=== PATIENT | male | born 1985 | race Caucasian/White ===

== ENCOUNTER 2017-11-14 19:17 | Emergency (ER) | payer SELFPAY ==
[~2017-11-14 19:17] MED LIST: LISI-363 PO
[2017-11-14 19:19] VITALS: BP 139/73; PULSE 76; RESP 16; TEMP 97.7; O2SAT 98
[2017-11-14] MEDS ORDERED: SODIUM CHLORIDE 0.9% FLUSH 10 ML FLUSH IV FLUSH PRN (19:45)
--- NOTE | 2017-11-14 19:55 | PD ---
HPI Chief Complaint: Edema Time Seen by Provider: 19:30 Travel History International Travel<30 days: No Contact w/Intl Traveler<30days: No Traveled to known affect area: No History of Present Illness HPI Patient is a 32-year-old male who presents to emergency room complaints of edema to his lower extremities. Patient reports that he has had increased edema since August of 2017. Patient reports that his legs would swell up and become painful. Reports no recent travels/trips. Denies history of dvt/pe. Denies sob. Patient reports that he does have history of chronic pain and history of IV drug abuse, he does follow-up with her pain management doctor in [facility] and is prescribed 8 mg of Dilaudid by mouth q 2 hours. Patient reports that he has had bruising to his right toes - denies any trauma. Patient reports concern that he may be in renal failure or reports concern that something is wrong with him. Denies fever/chills. Denies n/v. Denies chest pain/ sob. PFSH Past Medical History Cardiovascular Problems: Yes (HTN) Social History Alcohol Use: Yes Tobacco Use: Yes Substance Use: Yes Allergies-Medications (Allergen,Severity, Reaction): Coded Allergies: No Known Allergies (Unverified Adverse Reaction, Unknown, 11/14/17) Reported Meds & Prescriptions Reported Meds & Active Scripts Active Reported Dilaudid (Hydromorphone HCl) 8 Mg Tab 8 Mg PO Q6H PRN Review of Systems General / Constitutional: No: Fever, Chills Eyes: No: Visual changes HENT: No: Headaches Cardiovascular: No: Chest Pain or Discomfort Respiratory: No: Shortness of Breath Gastrointestinal: No: Abdominal Pain Genitourinary: No: Dysuria Musculoskeletal: Positive: Edema, No: Pain Skin: No Rash Neurologic: No: Weakness Psychiatric: No: Depression Endocrine: No: Polydipsia Hematologic/Lymphatic: No: Easy Bruising Physical Exam Narrative GENERAL: moderate distress SKIN: Focused skin assessment warm/dry. HEAD: Atraumatic. Normocephalic. EYES: Pupils equal and round. No scleral icterus. No injection or drainage. ENT: No nasal bleeding or discharge. Mucous membranes pink and moist. NECK: Trachea midline. No JVD. CARDIOVASCULAR: Regular rate and rhythm. No murmur appreciated. RESPIRATORY: No accessory muscle use. Clear to auscultation. Breath sounds equal bilaterally. GASTROINTESTINAL: Abdomen soft, non-tender, nondistended. Hepatic and splenic margins not palpable. MUSCULOSKELETAL: No obvious deformities. No clubbing. No cyanosis. +3 pedal edema, patient with bruising to right foot digits #2-3, pulses intact, neurovascularly intact. Left lower extremity: +3 pedal edema, no evidence of any bruising, pulses intact , neurovascularly intact. NEUROLOGICAL: Awake and alert. No obvious cranial nerve deficits. Motor grossly within normal limits. Normal speech. PSYCHIATRIC: Appropriate mood and affect; insight and judgment normal. Data Data Last Documented VS Vital Signs Date Time Temp Pulse Resp B/P (MAP) Pulse Ox O2 Delivery O2 Flow Rate FiO2 11/14/17 19:19 97.7 76 16 139/73 (95) 98 Room Air Orders Orders Basic Metabolic Panel (Bmp) (11/14/17 19:45) Complete Blood Count With Diff (11/14/17 19:45) Prothrombin Time / Inr (Pt) (11/14/17 19:45) Act Partial Throm Time (Ptt) (11/14/17 19:45) Iv Access Insert/Monitor (11/14/17 19:45) Sodium Chloride 0.9% Flush (Ns Flush) (11/14/17 19:45) Us Leg Venous Doppler Bilat (11/14/17 ) Drug Screen, Random Urine (11/14/17 19:45) Labs Laboratory Tests Test 11/14/17 20:15 11/14/17 21:20 White Blood Count 7.0 TH/MM3 Red Blood Count 4.22 MIL/MM3 Hemoglobin 12.5 GM/DL Hematocrit 36.9 % Mean Corpuscular Volume 87.5 FL Mean Corpuscular Hemoglobin 29.7 PG Mean Corpuscular Hemoglobin Concent 34.0 % Red Cell Distribution Width 13.4 % Platelet Count 272 TH/MM3 Mean Platelet Volume 7.6 FL Neutrophils (%) (Auto) 70.9 % Lymphocytes (%) (Auto) 18.2 % Monocytes (%) (Auto) 6.2 % Eosinophils (%) (Auto) 4.1 % Basophils (%) (Auto) 0.6 % Neutrophils # (Auto) 4.9 TH/MM3 Lymphocytes # (Auto) 1.3 TH/MM3 Monocytes # (Auto) 0.4 TH/MM3 Eosinophils # (Auto) 0.3 TH/MM3 Basophils # (Auto) 0.0 TH/MM3 CBC Comment DIFF FINAL Differential Comment Prothrombin Time 10.4 SEC Prothromb Time International Ratio 1.0 RATIO Activated Partial Thromboplast Time 26.1 SEC Blood Urea Nitrogen 10 MG/DL Creatinine 0.86 MG/DL Random Glucose 82 MG/DL Calcium Level 9.1 MG/DL Sodium Level 140 MEQ/L Potassium Level 4.2 MEQ/L Chloride Level 102 MEQ/L Carbon Dioxide Level 29.5 MEQ/L Anion Gap 9 MEQ/L Estimat Glomerular Filtration Rate 102 ML/MIN MDM Medical Decision Making Medical Screen Exam Complete: Yes Emergency Medical Condition: Yes Medical Record Reviewed: Yes Interpretation(s) Vital Signs Date Time Temp Pulse Resp B/P (MAP) Pulse Ox O2 Delivery O2 Flow Rate FiO2 11/14/17 19:19 97.7 76 16 139/73 (95) 98 Room Air Differential Diagnosis Renal failure, electrolyte abnormality, dvt Narrative Course During the course of the patients emergency department visit, the patients history, examination, and differential diagnosis were reviewed with the patient. The patient was placed on a lunchroom monitor with oximetry and frequent blood pressure monitoring. The patient had an IV access obtained and blood work sent for analysis. The patients laboratory studies were reviewed and remarkable for CBC & BMP Diagram 11/14/17 20:15 Calcium Level 9.1 Radiology studies were reviewed and remarkable for Last Impressions Lower Extremity Ultrasound 11/14/17 0000 Signed Impressions: Service Date/Time: November 20:50 - CONCLUSION: Normal examination. Hemant Morales MD Reviewed all labs and all studies with patient in detail. Patient with no evidence of DVT, discussed with him need for repeat ultrasound 1 week if swelling persists. Patient will follow-up with his primary care doctor and will return to the emergency room as needed. Patient with good pulses to bilateral extremities, no evidence of vascular compromise. Signs and symptoms of when to return to the emergency room was reviewed with patient detail. Diagnosis Primary Impression: Lower extremity edema Patient Instructions: General Instructions Additional Instructions: Please have your ultrasound repeated in 1 week if swelling persists Please follow up with your primary care doctor in 2-3 days Return to the ER if symptoms worsen or progress Return to the ER as needed Disposition: 01 DISCHARGE HOME Condition: Stable Sarahi Castro DO Nov 14, 2017 19:55
[2017-11-14] MEDS ORDERED: DILA8TAB4 PO (20:23)
[2017-11-14 20:43] LABS: AUTOMATED NEUTROPHIL # 4.9 TH/MM3 (1.8-7.7); BASOPHIL % 0.6 % (0.0-2.0); EOSINOPHIL # 0.3 TH/MM3 (0-0.4); EOSINOPHIL % 4.1 % (0.0-4.0); HEMATOCRIT 36.9 % (39.0-51.0); HEMOGLOBIN 12.5 GM/DL (13.0-17.0); LYMPH % 18.2 % (9.0-44.0); LYMPHOCYTE # 1.3 TH/MM3 (1.0-4.8); MEAN CELL VOLUME 87.5 FL (80.0-100.0); MEAN CORPUSCULAR HEMOGLOBIN 29.7 PG (27.0-34.0); MEAN PLATELET VOLUME 7.6 FL (7.0-11.0); MONO % 6.2 % (0.0-8.0); MONOCYTE # 0.4 TH/MM3 (0-0.9); NEUT % 70.9 % (16.0-70.0); PLATELET COUNT 272 TH/MM3 (150-450); RED BLOOD COUNT 4.22 MIL/MM3 (4.50-5.90); RED CELL DISTRIBUTION WIDTH 13.4 % (11.6-17.2)
[2017-11-14 20:55] LABS: PROTHROMBIN TIME - PATIENT 10.4 SEC (9.8-11.6)
[2017-11-14 20:57] LABS: BICARBONATE 29.5 MEQ/L (21.0-32.0); CALCIUM 9.1 MG/DL (8.5-10.1); CREATININE 0.86 MG/DL (0.60-1.30)
--- NOTE | 2017-11-14 21:33 | RADRPT ---
EXAM DATE/TIME: 11/14/2017 20:50 [facility] COMPARISON: No previous studies available for comparison. INDICATIONS : Bilateral leg swelling. MEDICAL HISTORY : Hypertension. Alcohol use. Substance use. Tobacco use. SURGICAL HISTORY : None. ENCOUNTER: Initial ACUITY: 4 - 6 days PAIN SCORE: 3/10 LOCATION: Bilateral legs. TECHNIQUE: Venous ultrasound of the left and right leg was performed from the inguinal ligament to the proximal calf. Real-time, color Doppler and spectral tracing, compression and augmentation techniques were us ed. FINDINGS: RIGHT LEG: There is normal compressibility of the deep venous system from the inguinal region to the proximal ca lf. No echogenic clot is seen in the lumen of the common femoral, femoral, popliteal, and posterior tibial veins. There is a normal response of the venous system to proximal and distal augmentation an d respiration. LEFT LEG: There is normal compressibility of the deep venous system from the inguinal region to the proximal ca lf. No echogenic clot is seen in the lumen of the common femoral, femoral, popliteal, and posterior tibial veins. There is a normal response of the venous system to proximal and distal augmentation an d respiration. CONCLUSION: Normal examination. Hemant Morales MD on November 14, 2017 at 21:31 Board Certified Radiologist. This report was verified electronically.
[2017-11-14 22:06] VITALS: BP 138/79; PULSE 97; RESP 16; O2SAT 98
== END 2017-11-14 22:08 | disposition home or self-care (01) ==
LOC: NEPD 19:17
DX: R60.0 Localized edema (principal); G89.29 Other chronic pain
CPT/HCPCS: 80048; 80307; 85025; 85610; 85730; 93970; 99284

== ENCOUNTER 2018-07-28 23:12 | Inpatient (IN) ==
[2018-07-29 03:27] LABS: Baso % (Auto) 0.2 % (0.0-2.0); Eos # (Auto) 0.2 th/mm3 (0.0-0.4); Eos % (Auto) 2.3 % (0.0-4.0); Hematocrit 34.5 % (39.0-51.0); Lymph # (Auto) 2.3 th/mm3 (1.0-4.8); Lymph % (Auto) 21.6 % (9.0-44.0); Mean Corpuscular HGB Conc 34.8 % (32.0-36.0); Mean Corpuscular Hemoglobin 29.2 pg (27.0-34.0); Mean Corpuscular Volume 83.9 fL (80.0-100.0); Mean Platelet Volume 7.1 fL (7.0-11.0); Mono # (Auto) 0.7 th/mm3 (0.0-0.9); Mono % (Auto) 6.9 % (0.0-8.0); Neut # (Auto) 7.3 th/mm3 (1.8-7.7); Platelet Count 334 th/mm3 (150-450); Red Blood Count 4.11 mil/mm3 (4.50-5.90); Red Cell Distribution Width 13.9 % (11.6-17.2); White Blood Count 10.6 th/mm3 (4.0-11.0)
[2018-07-29 03:36] LABS: Anion Gap 8 meq/L (5-15); Blood Urea Nitrogen 13 mg/dL (7-18); Calcium 9.1 mg/dL (8.5-10.1); Carbon Dioxide 28.6 meq/L (21.0-32.0); Chloride 102 meq/L (98-107); Glomerular Filtration Rate Greater Than 89 mL/min (>89); Glucose,Random 110 mg/dL (74-106); Potassium 4.2 meq/L (3.5-5.1); Sodium 139 meq/L (136-145)
[2018-07-29] MEDS ORDERED: Piperacil/Tazo 3.375 GM Premix 50 ML IV.SIG ONE (04:52)
[2018-07-29] MEDS ORDERED: Sod Chloride 0.9% Inj 1,000 ML IV.SIG ONE (04:52)
[2018-07-29] MEDS ORDERED: Vancomycin Inj 1 GM/200 ML PIGGYBACK IV.SIG ONE (04:52)
[2018-07-29] MEDS ORDERED: Vancomycin Inj 1,000 MG in Sodium Chlor 0.9% Inj 250 ML IV.SIG ONE (05:00)
[2018-07-29] MEDS ORDERED: Ketorolac Inj 30 MG/ML (IVP) Vial IV.PUSH ONE (05:07)
--- NOTE | 2018-07-29 05:07 | ED ---
HPI General Chief complaint: Skin/Abscess/Foreign Body Stated complaint: skin complaint Time Seen by Provider: 07/29/18 04:36 Source: patient Limitations: no limitations History of Present Illness HPI narrative: The patient is a 33 year old male who presents to the [facility] emergency department with a history of right foot pain that began 4-5 days ago. He reports that initially on the dorsum of his foot he noticed an area of redness that appeared to be an insect bite. He reports that it became purple over time in the area of redness has spread. He has been trying to use a topical salve to dry out the infection, however no drainage was occurring, therefore yesterday his significant other put a needle in the center of the wound to attempt to drain it. Bloody drainage was expressed. The patient continues to have an oozing of the brown fluid. The patient reports that the redness and swelling along with pain has gotten much worse throughout the evening. He denies having any fevers or chills. He reports that he is on Dilaudid for chronic knee and back pain. He denies any IV drug use. He reports that he has not injected his drugs for the last few months since his child was born. He denies having any prior history of MRSA or skin infections. He denies having any nausea, vomiting, or diarrhea. He denies having any chest pain, chest pressure, or shortness of breath. Otherwise on review of systems, the patient denies having any cough, congestion, neck or back pain, abdominal pain, urinary symptoms, or neurologic symptoms. The patient reports that his tetanus was last updated 1-2 years ago. Related Data Home Medications Medication Instructions Recorded Confirmed baclofen 20 mg PO TID 07/29/18 07/29/18 clonazepam 1 mg PO BID 07/29/18 07/29/18 fluoxetine 40 mg PO DAILY 07/29/18 07/29/18 hydromorphone 36 mg PO DAILY 07/29/18 07/29/18 lamotrigine 100 mg PO BID 07/29/18 07/29/18 lisinopril 20 mg PO DAILY 07/29/18 07/29/18 olanzapine [Zyprexa] 10 mg PO DAILY 07/29/18 07/29/18 Allergies Allergy/AdvReac Type Severity Reaction Status Date / Time No Known Allergies Allergy Unverified 07/28/18 23:32 Review of Systems ROS: all other systems reviewed are negative (Except for that which is mentioned in the HPI) FOR[facility]LY [facility] Medical History Medical History Chronic back pain (Acute) Chronic knee pain (Acute) Bipolar disorder (Acute) Hepatitis C (Acute) Hx of intravenous drug use in remission (Acute) Surgical History Surgical History History of appendectomy (Acute) Social History Social History Substance History: No History of Abuse Second Hand Smoke Exposure: No Smoking Status: Current every day smoker Tobacco Type: Cigarettes Packs Per Day: 1 Cigarettes Per Day: 20.0 How Often Do You Have a Drink Containing Alcohol: Never Recent Out of Country Travel within the Last 8 Weeks: No Immunization History Tetanus Immunization: Unsure Hx Influenza Vaccine This Season: No Exam Const General: cooperative, no acute distress and well developed Nutritional Appearance: well nourished Orientation: alert, awake and oriented x3 HENMT Head: normocephalic and atraumatic Nose: no nasal discharge and no epistaxis Mouth: moist mucous membranes Throat: posterior oropharynx normal and uvula midline Eyes Sclera: normal sclerae Pupils: PERRL Neck Neck: no meningeal signs, trachea midline and no JVD Resp Effort & Inspection: no use of accessory muscles Auscultation: clear to auscultation bilaterally Cardio Rate: regular rate Rhythm: regular rhythm Heart Sounds: no murmurs GI Inspection: non-distended Palpation: soft, no hepatosplenomegaly, no guarding, not rigid and nontender Auscultation: normal bowel sounds Back/Spine/Pelvis Back: no CVA tenderness Thoracic/Lumbar Spine: No thoracic spinal tenderness and No lumbar spinal tenderness Skin General: dry skin (warm) Neuro General: alert, awake and oriented x3 Cranial Nerves: other (No facial asymmetry. Grossly nonfocal.) Speech: speech normal Motor: no movement abnormalities noted Extrem General: normal to inspection (Except in the area of interest, the right foot.) , no clubbing, no cyanosis and edema (The patient is noted to have 1+ edema of the right lower extremity foot. No calf tenderness on palpation.) Laterality: on the right Right lower extremity: ankle and foot ( that is ecchymotic appearing.Patient continues to have soft compartments, however he has significant dorsal swelling of the right foot with a 4 x 3 cm area of fluctuance that is ecchymotic appearing. The patient has full range of motion of his toes and ankle. There is a yellow to clear drainage that was cultured.) Details: normal capillary refill Psych Mood: congruent mood Affect: normal affect Judgment: judgment good Course Consultations Consultation #1: The patient's case including history, pertinent physical examination findings, and laboratory studies were discussed with Dr. Pinto. She requested that the patient have an MRI of the right foot with contrast. She plans to take the patient to the OR later today. Time: 05:52 Consultation #2: The patient's case including history, pertinent physical examination findings, and laboratory studies were discussed with . It was agreed that the patient would be admitted to the hospitalist service. Time: 06:33 Initial Documented Vital Signs Temperature 98.8 F 07/28/18 23:25 Pulse Rate 93 H 07/28/18 23:25 Respiratory Rate 12 07/28/18 23:25 Blood Pressure 127/59 L 07/28/18 23:25 Pulse Oximetry 95 07/28/18 23:25 Last Documented Vital Signs Temperature 97.7 F 07/29/18 16:45 Pulse Rate 70 07/29/18 17:45 Respiratory Rate 14 07/29/18 17:45 Blood Pressure 112/54 L 07/29/18 17:45 Pulse Oximetry 95 07/29/18 16:45 Medical Decision Making MDM Narrative Medical decision making narrative: During the course of the patient's emergency department visit, the patient's history, examination, and differential diagnosis were reviewed with the patient. The patient was placed on a hospital monitor with oximetry and frequent blood pressure monitoring. The patient had IV access obtained and blood work sent for analysis. The patient had a diagnostic evaluation started for cellulitis involving the dorsum of the right foot associated with possible abscess. The patient was initially provided Zosyn 3.375 g IV, vancomycin 1 g IV, normal saline 1 L IV fluid bolus. The patient's diagnostic evaluation is remarkable for an elevated sedimentation rate blood cell count of 10.6 with a normal differential, hemoglobin 12, PT PTT within normal limits, chemistry is remarkable for C-reactive protein is 7.10, AST 47, albumin 3.2, glucose 110. As if inflammatory markers are elevated there is also an underlying suspicion for osteomyelitis. An x-ray was done. The x-ray reveals soft tissue swelling of the right foot nonspecific but an age indeterminate needlelike foreign body is seen in the soft tissues plantar to the fifth metatarsal base. No fracture or subluxation. A call was placed out to the manpower development advisor on-call. She did agree to see the patient. She requested that an MRI of the right foot be done in the meantime. She plans to take the patient to the OR later today. The patient's results were discussed with the patient, including the plan of care. I explained that further testing and/ or monitoring is indicated based on the patient's history, examination, and/ or laboratory findings. Therefore, I recommended admission for additional evaluation. The patient expressed understanding and was agreeable with this plan. The patient was admitted to the hospital in guarded condition and sent to a bed under the care of the [facility] service. Medical Screen Exam Complete: Yes Emergency Medical Condition: Yes Differential Diagnosis Differential Diagnosis: Cellulitis, versus cellulitis with abscess, versus deep infection, versus compartment syndrome, versus osteomyelitis Medical Records Medical records reviewed: Yes I reviewed the patient's medical records. Lab Data Lab results reviewed: Yes I reviewed the patient's lab results. Result diagrams: 07/29/18 02:54 07/29/18 02:54 Lab Results 07/29/18 07/29/18 07/29/18 Range/Units 02:54 02:54 05:20 WBC 10.6 (4.0-11.0) th/mm3 RBC 4.11 L (4.50-5.90) mil/mm3 Hgb 12.0 L (13.0-17.0) gm/dL Hct 34.5 L (39.0-51.0) % MCV 83.9 (80.0-100.0) fL MCH 29.2 (27.0-34.0) pg MCHC 34.8 (32.0-36.0) % RDW 13.9 (11.6-17.2) % Plt Count 334 (150-450) th/mm3 MPV 7.1 (7.0-11.0) fL Neut % (Auto) 69.0 (16.0-70.0) % Lymph % (Auto) 21.6 (9.0-44.0) % Gonzales % (Auto) 6.9 (0.0-8.0) % Eos % (Auto) 2.3 (0.0-4.0) % Baso % (Auto) 0.2 (0.0-2.0) % Neut # (Auto) 7.3 (1.8-7.7) th/mm3 Lymph # (Auto) 2.3 (1.0-4.8) th/mm3 Gonzales # (Auto) 0.7 (0.0-0.9) th/mm3 Eos # (Auto) 0.2 (0.0-0.4) th/mm3 Baso # (Auto) 0.0 (0.0-0.2) th/mm3 WBC Differential . Differential Comment Auto diff final ESR (0-15) mm/hr Sodium 139 (136-145) meq/L Potassium 4.2 (3.5-5.1) meq/L Chloride 102 (98-107) meq/L Carbon Dioxide 28.6 (21.0-32.0) meq/L Anion Gap 8 (5-15) meq/L BUN 13 (7-18) mg/dL Creatinine 0.84 (0.60-1.30) mg/dL Estimated GFR Greater than 89 (>89) mL/min Random Glucose 110 H (74-106) mg/dL Lactic Acid (0.4-2.0) mmol/L Calcium 9.1 (8.5-10.1) mg/dL Total Bilirubin 0.4 (0.2-1.0) mg/dL Direct Bilirubin 0.1 (0.0-0.2) mg/dL Indirect Bilirubin 0.3 (0.0-0.8) mg/dL AST 47 H (15-37) U/L ALT 58 (12-78) U/L Alkaline Phosphatase 111 (45-117) U/L C-Reactive Protein 7.10 H (0.00-0.30) mg/dL Total Protein 7.9 (6.4-8.2) g/dL Albumin 3.2 L (3.4-5.0) g/dL 07/29/18 07/29/18 Range/Units 05:20 05:20 WBC (4.0-11.0) th/mm3 RBC (4.50-5.90) mil/mm3 Hgb (13.0-17.0) gm/dL Hct (39.0-51.0) % MCV (80.0-100.0) fL MCH (27.0-34.0) pg MCHC (32.0-36.0) % RDW (11.6-17.2) % Plt Count (150-450) th/mm3 MPV (7.0-11.0) fL Neut % (Auto) (16.0-70.0) % Lymph % (Auto) (9.0-44.0) % Gonzales % (Auto) (0.0-8.0) % Eos % (Auto) (0.0-4.0) % Baso % (Auto) (0.0-2.0) % Neut # (Auto) (1.8-7.7) th/mm3 Lymph # (Auto) (1.0-4.8) th/mm3 Gonzales # (Auto) (0.0-0.9) th/mm3 Eos # (Auto) (0.0-0.4) th/mm3 Baso # (Auto) (0.0-0.2) th/mm3 WBC Differential Differential Comment ESR 69 H (0-15) mm/hr Sodium (136-145) meq/L Potassium (3.5-5.1) meq/L Chloride (98-107) meq/L Carbon Dioxide (21.0-32.0) meq/L Anion Gap (5-15) meq/L BUN (7-18) mg/dL Creatinine (0.60-1.30) mg/dL Estimated GFR (>89) mL/min Random Glucose (74-106) mg/dL Lactic Acid 0.7 (0.4-2.0) mmol/L Calcium (8.5-10.1) mg/dL Total Bilirubin (0.2-1.0) mg/dL Direct Bilirubin (0.0-0.2) mg/dL Indirect Bilirubin (0.0-0.8) mg/dL AST (15-37) U/L ALT (12-78) U/L Alkaline Phosphatase (45-117) U/L C-Reactive Protein (0.00-0.30) mg/dL Total Protein (6.4-8.2) g/dL Albumin (3.4-5.0) g/dL Imaging Data Radiologist's impression: Foot X-Ray 07/29/18 04:50 CONCLUSION: Soft tissue swelling of the right foot, nonspecific but an age-indeterminate needlelike foreign body is seen in the soft tissues plantar to the fifth metatarsal base. No fracture or subluxation. Foot MRI 07/29/18 05:55 There is diffuse edema identified of the lower leg and dorsum of the foot with a focal fluid collection dorsal lateral aspect of the foot measuring 3.3 x 1.3 cm in size. There is surrounding diffuse skin thickening. This is felt to represent an abscess with associated cellulitis. There is susceptibility artifact at the plantar aspect of the foot deep to the fifth metatarsal which may be related to the metallic foreign body noted on the recent x-ray. There is no underlying bone marrow signal abnormality. CONCLUSION: 1. Cellulitis and abscess formation seen. Discharge Plan Discharge Disposition Patient Disposition: 30 Still Patient Discharge Details Diagnosis: Cellulitis, Abscess Physicians Team ED Provider: Christina Martinez Primary Care Provider: Primary Care Ernesto,Dominique Attending Provider: Uzair Casper Other Providers: Selam Richey ; Rosanne Sparks Status ED Status: Left Department Discharge Information Discharge Date/Time: 07/29/18 13:15
[2018-07-29] MEDS ORDERED: Lidocaine 1%/Epinephrine 1:200,000 PF Inj 30 ML Vial INFILTRATN ONE (05:13)
[2018-07-29] MEDS ORDERED: Lidocaine 1%/Epinephrine 1:100,000 Inj 20 ML Vial ONE (05:31)
--- NOTE | 2018-07-29 05:36 | XR ---
EXAM DATE: 07/29/2018 5:11 AM EDT AGE/SEX: 33 years / Male INDICATIONS: Right foot pain and swelling for 5 days. Possible insect bite. CLINICAL DATA: This is the patient's initial encounter. Patient reports that signs and symptoms have been present for 4 - 6 days and indicates a pain score of 8/10. MEDICAL/SURGICAL HISTORY: None. None. COMPARISON: No prior exams available for comparison. FINDINGS: Soft tissues of the right foot are swollen. There is a roughly 8 mm long, needlelike foreign body in the soft tissues plantar to the fifth metatarsal base. No other radiopaque structures are demonstrate d. No fracture or subluxation. No bone destruction. No significant arthropathy demonstrated. CONCLUSION: Soft tissue swelling of the right foot, nonspecific but an age-indeterminate needlelike foreign body is seen in the soft tissues plantar to the fifth metatarsal base. No fracture or subluxation. Electronically signed by: Marc Harding MD 07/29/2018 5:35 AM EDT
[2018-07-29 06:09] LABS: Total Protein 7.9 g/dL (6.4-8.2)
[2018-07-29 06:10] LABS: Albumin 3.2 g/dL (3.4-5.0)
[2018-07-29 06:12] LABS: C-Reactive Protein 7.1 mg/dL (0.00-0.30)
[2018-07-29] MEDS ORDERED: Vancomycin Consult Pharmacy OTHER PRN (06:34)
--- NOTE | 2018-07-29 08:38 | P.HP ---
History of Present Illness Primary Care Physician: No Primary Care Physician Chief Complaint: Right foot edema and erythema. History of Present Illness: This is a pleasant 33 y/o Male who came to ER with right foot pain that began 4- 5 days ago. He reports that initially on the dorsum of his foot he noticed an area of redness that appeared to be an insect bite. using topical medicines at home, continues to have an oozing of the brown fluid. worsening erythema and edema, On chronic Dilaudid for back pain. has Bipolar disorder, Hepatitis C, history of IVDU in remission, Tobacco dependence. received Zosyn and Vancomycin, Inpatient Certification: I certify that the inpatient services were ordered in accordance with Medicare regulations governing the order. This includes certification that hospital inpatient services are reasonable and necessary and in the case of services not specified as inpatient-only under 42 CFR 419.22(n), that they are appropriately provided as inpatient services in accordance to with the 2-midnight benchmark under 43 CFR 412.3(e) Estimated Total Length of Stay (Days): 3 Plans for Post Hospital Care: Not yet determined Review of Systems All other systems reviewed negative except as stated in HPI PMFSH - History History Provided By: Patient - Medical History Medical History: Medical History (Last Updated 07/29/18 @ 05:03 by Christina Martinez MD) Bipolar disorder Hepatitis C Hx of intravenous drug use in remission - Surgical History Surgical History: Surgical History (Last Updated 07/28/18 @ 23:29 by Allegra Coughlin RN) History of appendectomy - Family History Family History: Family History (Last Updated 07/29/18 @ 10:56 by Uzair Casper MD) Other Family history of hypertension - Tobacco History Second Hand Smoke Exposure: No Tobacco Use In Past 30 Days: No Smoking Status: Current every day smoker Tobacco Type: Cigarettes Packs Per Day: 1 Cigarettes Per Day: 20.0 - Alcohol History How Often Do You Have a Drink Containing Alcohol: Never - Substance Use History Substance History: Past History - Travel History Recent Travel Out of the Country Within the Last 8 Weeks: No - Immunization History Tetanus Immunization: Unsure Hx Influenza Vaccine This Season: No Medications and Allergies Active Medications: Active Medications Sodium Chloride (Ns Inj) 1,000 mls @ 100 mls/hr IV.CONT .Q10H [facility] Piperacillin/Tazobactam/Dextrose (Zosyn 4.5 Gm Premix) 4.5 gm in 100 mls @ 200 mls/hr IV.SIG Q6H [facility] Pharmacy Profile Note (Vancomycin Consult Pharmacy) 1 each OTHER UNSCH PRN PRN Reason: Pharmacy to dose Sodium Chloride (Ns Flush) 2 ml IV.FLUSH BID [facility] Sodium Chloride (Ns Flush) 2 ml IV.FLUSH PRN PRN PRN Reason: FLUSH AFTER USING IV ACCESS Allergies Allergy/AdvReac Type Severity Reaction Status Date / Time No Known Allergies Allergy Unverified 07/28/18 23:32 Home Medications Medication Instructions Recorded Confirmed Type No Known Home Medications 07/29/18 07/29/18 History Exam Vital signs: Vital Signs 07/28/18 23:25 07/29/18 05:42 Temperature 98.8 F Pulse Rate 93 H 72 Respiratory Rate 12 16 Blood Pressure 127/59 L Pulse Oximetry 95 98 Intake & Output 07/28/18 07/29/18 07/29/18 18:59 06:59 18:59 Intake Total 1050 / 1050 Balance 1050 / 1050 Weight 102.058 kg Intake: IV 1050 / 1050 Zosyn 3.375 GM Premix 50 ML @ 50 / 50 100 mls/hr IV.SIG ONCE ONE Rx#: [id number] NS Inj 1,000 ML @ Wide Open IV. 1000 / 1000 SIG BOLUS ONE Rx#:[id number] Narrative: GENERAL: This is a well-nourished, well-developed patient, in no apparent distress. CARDIOVASCULAR: Regular rate and rhythm without murmurs, gallops, or rubs. RESPIRATORY: Clear to auscultation. Breath sounds equal bilaterally. No wheezes , rales, or rhonchi. GASTROINTESTINAL: Abdomen soft, non-tender, nondistended. Normal active bowel sounds MUSCULOSKELETAL: Extremities without clubbing, cyanosis, or edema. NEURO: Alert & Oriented x4 to person, place, time, situation. Moves all ext x4 EXTREMITIES: No clubbing cyanosis, edema on right foot, dorsal swelling, fluctuation positive, Results - Labs CBC & Chem 7: 07/29/18 02:54 07/29/18 02:54 Labs: Laboratory Results - last 24 hr 07/29/18 07/29/18 07/29/18 02:54 02:54 05:20 WBC 10.6 RBC 4.11 L Hgb 12.0 L Hct 34.5 L MCV 83.9 MCH 29.2 MCHC 34.8 RDW 13.9 Plt Count 334 MPV 7.1 Neut % (Auto) 69.0 Lymph % (Auto) 21.6 Eagle % (Auto) 6.9 Eos % (Auto) 2.3 Baso % (Auto) 0.2 Neut # (Auto) 7.3 Lymph # (Auto) 2.3 Eagle # (Auto) 0.7 Eos # (Auto) 0.2 Baso # (Auto) 0.0 WBC Differential . Differential Comment Auto diff final ESR Sodium 139 Potassium 4.2 Chloride 102 Carbon Dioxide 28.6 Anion Gap 8 BUN 13 Creatinine 0.84 Estimated GFR Greater than 89 Random Glucose 110 H Lactic Acid Calcium 9.1 Total Bilirubin 0.4 Direct Bilirubin 0.1 Indirect Bilirubin 0.3 AST 47 H ALT 58 Alkaline Phosphatase 111 C-Reactive Protein 7.10 H Total Protein 7.9 Albumin 3.2 L 07/29/18 07/29/18 05:20 05:20 WBC RBC Hgb Hct MCV MCH MCHC RDW Plt Count MPV Neut % (Auto) Lymph % (Auto) Eagle % (Auto) Eos % (Auto) Baso % (Auto) Neut # (Auto) Lymph # (Auto) Eagle # (Auto) Eos # (Auto) Baso # (Auto) WBC Differential Differential Comment ESR 69 H Sodium Potassium Chloride Carbon Dioxide Anion Gap BUN Creatinine Estimated GFR Random Glucose Lactic Acid 0.7 Calcium Total Bilirubin Direct Bilirubin Indirect Bilirubin AST ALT Alkaline Phosphatase C-Reactive Protein Total Protein Albumin - Imaging Impressions Foot X-Ray 07/29/18 04:50 CONCLUSION: Soft tissue swelling of the right foot, nonspecific but an age-indeterminate needlelike foreign body is seen in the soft tissues plantar to the fifth metatarsal base. No fracture or subluxation. Caprini VTE Risk Assessment Caprini VTE Risk Assessment: No/Low Risk (score <= 1) Caprini Risk Assessment Model: Point Value = 1 Point Value = 2 Point Value = 3 Point Value = 5 Age 41-60 Minor surgery BMI > 25 kg/m2 Swollen legs Varicose veins or History of unexplained or recurrent spontaneous Oral contraceptives or hormone replacement Sepsis (< 1 month) Serious lung disease, including pneumonia (< 1 month) Abnormal pulmonary function Acute myocardial infarction Congestive heart failure (< 1 month) History of inflammatory bowel disease Medical patient at bed rest Age 61-74 Arthroscopic surgery Major open surgery (> 45 min) Laparoscopic surgery (> 45 min) Malignancy Confined to bed (> 72 hours) Immobilizing plaster cast Central venous access Age >= 75 History of VTE Family history of VTE Factor V Leiden Prothrombin [id number] Lupus anticoagulant Anticardiolipin antibodies Elevated serum homocysteine Heparin-induced thrombocytopenia Other congenital or acquired thrombophilia Stroke (< 1 month) Elective arthroplasty Hip, pelvis, or leg fracture Acute spinal cord injury (< 1 month) Prophylaxis Regimen: Total Risk Factor Score Risk Level Prophylaxis Regimen 0-1 Low Early ambulation 2 Moderate Order ONE of the following: *Sequential Compression Device (SCD) *Heparin 5000 units SQ BID 3-4 Higher Order ONE of the following medications: *Heparin 5000 units SQ TID *Enoxaparin/Lovenox 40 mg SQ daily (WT < 150 kg, CrCl > 30 mL/min) *Enoxaparin/Lovenox 30 mg SQ daily (WT < 150 kg, CrCl > 10-29 mL/min) *Enoxaparin/Lovenox 30 mg SQ BID (WT < 150 kg, CrCl > 30 mL/min) AND/OR *Sequential Compression Device (SCD) 5 or more Highest Order ONE of the following medications: *Heparin 5000 units SQ TID (Preferred with Epidurals) *Enoxaparin/Lovenox 40 mg SQ daily (WT < 150 kg, CrCl > 30 mL/min) *Enoxaparin/Lovenox 30 mg SQ daily (WT < 150 kg, CrCl > 10-29 mL/min) *Enoxaparin/Lovenox 30 mg SQ BID (WT < 150 kg, CrCl > 30 mL/min) AND *Sequential Compression Device (SCD) Assessment and Plan - Plan 1. right foot cellulitis/abscess on antibiotics, Podiatry following 2. IDU in remission 3. hepatitis C for outpatient management 4. Bipolar disorder continue Home medicines 5. Tobacco dependence strongly recommended to stop smoking DVT prophylaxis with SCDs until Podiatry management. Code Status: Full Code. Discussed Condition With: Patient and nurse in ER. Discharge Planning: Once cleared by Podiatry.
[2018-07-29] MEDS: Sod Chloride 0.9% Inj 1,000 ML IV.CONT SCH ×2 (09:16→17:17)
[2018-07-29] MEDS ORDERED: Gadobutrol PF 10 MMOL/10 ML Vial (for RAD) IV.SIG ONE (10:29)
--- NOTE | 2018-07-29 11:30 | MR ---
EXAM DATE: 07/29/2018 10:45 AM EDT AGE/SEX: 33 years / Male INDICATIONS: . Right lateral foot wound on mid foot with redness and swelling down to toes. CLINICAL DATA: This is the patient's initial encounter. Patient reports that signs and symptoms have been present for 1 week and indicates a pain score of 7/10. MEDICAL/SURGICAL HISTORY: Hypertension. Hepatitis C. Appendectomy. COMPARISON: [facility] [place], FOOT COMPLETE RIGHT 3V, 07/29/2018. . TECHNIQUE: Multiplanar, multisequence MRI examination was performed without contrast and after th e intravenous administration of 10 ml Gadavist (gadobutrol) single exam dose. FINDINGS: There is diffuse edema identified of the lower leg and dorsum of the foot with a focal fluid collecti on dorsal lateral aspect of the foot measuring 3.3 x 1.3 cm in size. There is surrounding diffuse ski n thickening. This is felt to represent an abscess with associated cellulitis. There is susceptibilit y artifact at the plantar aspect of the foot deep to the fifth metatarsal which may be related to the metallic foreign body noted on the recent x-ray. There is no underlying bone marrow signal abnormali ty. CONCLUSION: 1. Cellulitis and abscess formation seen. Electronically signed by: Cheikh Carrera MD 07/29/2018 11:28 AM EDT
[2018-07-29] MEDS: Piperacil/Tazo 4.5 GM Premix 4.5 GM/100 ML BAG IV.SIG SCH ×2 (14:01→18:18)
[2018-07-29] MEDS ORDERED: Bupivacaine PF 0.5% Inj 30 ML Vial ONE (14:49)
[2018-07-29] MEDS ORDERED: Lidocaine PF 1% Inj 10 ML Amp ONE (14:49)
[2018-07-29] MEDS ORDERED: HYDROmorphone PF Inj 2 MG/ML Vial ONE ×2 (15:16→15:46)
[2018-07-29] MEDS ORDERED: Ketamine Inj 50 MG/5 ML Syringe IV.PUSH ONE (15:16)
[2018-07-29] MEDS ORDERED: Dexmedetomidine Inj 200 MCG/2 ML Vial ONE (15:16)
--- NOTE | 2018-07-29 15:27 | P.CONPOD ---
History of Present Illness Service: Foot and ankle surgery/podiatry Consult date: 07/29/18 Reason for Consult: Right foot abscess Primary Care Provider: Dominique Primary Care Physician Chief Complaint: Right foot edema and erythema. History of Present Illness: Podiatry consulted for this 33-year-old male who came to the emergency room with right foot pain that began 4-5 days ago. Patient states that the area in question started out as an insect bite. He has tried topicals and his significant other tried puncturing the wound with a needle. Patient reports increased erythema and edema to site he is on Dilaudid for chronic back pain. He has a history of bipolar disorder, hepatitis C, history of IV drug use, and tobacco dependence. He denies that this abscess is at all related to IV drug use. He is surprised to hear that there is a foreign body, needle in his foot as he states his significant other did not leave a needle in his foot. 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 Review of Systems Constitutional: Denies body ache(s), Denies chills, Denies excessive sweating, Denies fever(s), Denies night sweats, Denies weakness, Denies weight gain Respiratory: Denies shortness of breath Gastrointestinal: Denies nausea, Denies vomiting PMFSH - History History Provided By: Patient, Family Member - Medical History Medical History: Medical History (Last Reviewed 07/29/18 @ 15:30 by Selam Richey DPM) Bipolar disorder Hepatitis C Hx of intravenous drug use in remission - Surgical History Surgical History: Surgical History (Last Reviewed 07/29/18 @ 15:30 by Selam Richey DPM) History of appendectomy - Family History Family History: Family History (Last Reviewed 07/29/18 @ 15:30 by Selam Richey DPM) Other Family history of hypertension - Tobacco History Second Hand Smoke Exposure: No Tobacco Use In Past 30 Days: No Smoking Status: Current every day smoker Tobacco Type: Cigarettes Packs Per Day: 1 Cigarettes Per Day: 20.0 - Alcohol History How Often Do You Have a Drink Containing Alcohol: Never - Substance Use History Substance History: No History of Abuse - Travel History Recent Travel Out of the Country Within the Last 8 Weeks: No - Immunization History Tetanus Immunization: Unsure Hx Influenza Vaccine This Season: No Medications and Allergies Active Medications: Active Medications Sodium Chloride (Ns Inj) 1,000 mls @ 100 mls/hr IV.CONT .Q10H [facility] Last Infusion: 07/29/18 14:04 Dose: Infused Piperacillin/Tazobactam/Dextrose (Zosyn 4.5 Gm Premix) 4.5 gm in 100 mls @ 200 mls/hr IV.SIG Q6H [facility] Last Infusion: 07/29/18 14:05 Dose: Infused Vancomycin HCl 1,250 mg/ (Sodium Chloride) 262.5 mls @ 250 mls/hr IV.SIG Q12H [facility] Miscellaneous Information ([facility] Ordered Lab Info) 0 each OTHER ONCE ONE Stop: 07/30/18 16:46 Pharmacy Profile Note (Vancomycin Consult Pharmacy) 1 each OTHER UNSCH PRN PRN Reason: Pharmacy to dose Sodium Chloride (Ns Flush) 2 ml IV.FLUSH BID [facility] Last Admin: 07/29/18 09:16 Dose: 2 ml Sodium Chloride (Ns Flush) 2 ml IV.FLUSH PRN PRN PRN Reason: FLUSH AFTER USING IV ACCESS Allergies Allergy/AdvReac Type Severity Reaction Status Date / Time No Known Allergies Allergy Unverified 07/28/18 23:32 Home Medications Medication Instructions Recorded Confirmed Type baclofen 20 mg PO TID 07/29/18 07/29/18 History clonazepam 1 mg PO BID 07/29/18 07/29/18 History fluoxetine 40 mg PO DAILY 07/29/18 07/29/18 History hydromorphone 36 mg PO DAILY 07/29/18 07/29/18 History lamotrigine 100 mg PO BID 07/29/18 07/29/18 History lisinopril 20 mg PO DAILY 07/29/18 07/29/18 History olanzapine [Zyprexa] 10 mg PO DAILY 07/29/18 07/29/18 History Physical Exam Vital signs: Vital Signs 07/28/18 23:25 07/29/18 05:42 07/29/18 11:00 Temperature 98.8 F Pulse Rate 93 H 72 75 Respiratory Rate 12 16 18 Blood Pressure 127/59 L 120/69 Pulse Oximetry 95 98 96 Intake & Output 07/28/18 07/29/18 07/29/18 18:59 06:59 18:59 Intake Total 1050 / 1050 1100 / 1100 Balance 1050 / 1050 1100 / 1100 Weight 102.058 kg Intake: IV 1050 / 1050 1100 / 1100 NS Inj 1,000 ML @ 100 mls/hr IV 1000 / 1000 .CONT .Q10H [facility] Rx#:[id number] Zosyn 3.375 GM Premix 50 ML @ 50 / 50 100 mls/hr IV.SIG ONCE ONE Rx#: [id number] Zosyn 4.5 GM Premix 4.5 gm In 100 / 100 100 ml @ 200 mls/hr IV.SIG Q6H [facility] Rx#:[id number] NS Inj 1,000 ML @ Wide Open IV. 1000 / 1000 SIG BOLUS ONE Rx#:[id number] Narrative: Lower extremity physical exam: Vascular: Dorsalis pedis 2/4, posterior tibial palpable. Capillary refill time within normal limits to digits 5 bilateral foot. Edema present to right foot Neuro: Gross sensation intact to bilateral lower extremity. Pinpoint sensation intact. No hyperalgesia noted to bilateral lower extremity Dermatology: Increased erythema noted to right foot extending from metatarsophalangeal joint up through anterior ankle. Dorsal lateral abscess formation noted with fluctuance and crepitus. Surrounding erythema and edema noted. Serosanguineous drainage noted, no purulent drainage noted. Musculoskeletal: Tender to palpation to right lateral foot. GENERAL: This is a well-nourished, well-developed patient, in no apparent distress. SKIN: Dorsal lateral foot abscess noted HEAD: Atraumatic. EYES: Pupils equal round and reactive. ENT: Airway patent. NECK: Trachea midline. RESPIRATORY: Nonlabored breathing. MUSCULOSKELETAL:. Negative Homans sign bilaterally. NEUROLOGICAL: Awake and alert. Normal speech. Results - Labs CBC & Chem 7: 07/29/18 02:54 07/29/18 02:54 Laboratory Results - last 24 hr 07/29/18 07/29/18 07/29/18 02:54 02:54 05:20 WBC 10.6 RBC 4.11 L Hgb 12.0 L Hct 34.5 L MCV 83.9 MCH 29.2 MCHC 34.8 RDW 13.9 Plt Count 334 MPV 7.1 Neut % (Auto) 69.0 Lymph % (Auto) 21.6 Mcdowell % (Auto) 6.9 Eos % (Auto) 2.3 Baso % (Auto) 0.2 Neut # (Auto) 7.3 Lymph # (Auto) 2.3 Mcdowell # (Auto) 0.7 Eos # (Auto) 0.2 Baso # (Auto) 0.0 WBC Differential . Differential Comment Auto diff final ESR Sodium 139 Potassium 4.2 Chloride 102 Carbon Dioxide 28.6 Anion Gap 8 BUN 13 Creatinine 0.84 Estimated GFR Greater than 89 Random Glucose 110 H Lactic Acid Calcium 9.1 Total Bilirubin 0.4 Direct Bilirubin 0.1 Indirect Bilirubin 0.3 AST 47 H ALT 58 Alkaline Phosphatase 111 C-Reactive Protein 7.10 H Total Protein 7.9 Albumin 3.2 L 07/29/18 07/29/18 05:20 05:20 WBC RBC Hgb Hct MCV MCH MCHC RDW Plt Count MPV Neut % (Auto) Lymph % (Auto) Mcdowell % (Auto) Eos % (Auto) Baso % (Auto) Neut # (Auto) Lymph # (Auto) Mcdowell # (Auto) Eos # (Auto) Baso # (Auto) WBC Differential Differential Comment ESR 69 H Sodium Potassium Chloride Carbon Dioxide Anion Gap BUN Creatinine Estimated GFR Random Glucose Lactic Acid 0.7 Calcium Total Bilirubin Direct Bilirubin Indirect Bilirubin AST ALT Alkaline Phosphatase C-Reactive Protein Total Protein Albumin - Imaging Impressions Foot X-Ray 07/29/18 04:50 CONCLUSION: Soft tissue swelling of the right foot, nonspecific but an age-indeterminate needlelike foreign body is seen in the soft tissues plantar to the fifth metatarsal base. No fracture or subluxation. Foot MRI 07/29/18 05:55 There is diffuse edema identified of the lower leg and dorsum of the foot with a focal fluid collection dorsal lateral aspect of the foot measuring 3.3 x 1.3 cm in size. There is surrounding diffuse skin thickening. This is felt to represent an abscess with associated cellulitis. There is susceptibility artifact at the plantar aspect of the foot deep to the fifth metatarsal which may be related to the metallic foreign body noted on the recent x-ray. There is no underlying bone marrow signal abnormality. CONCLUSION: 1. Cellulitis and abscess formation seen. Assessment and Plan - Plan 33-year-old male with right dorsal lateral foot abscess Patient examined and evaluated with present bedside To OR today for right foot incision and drainage possible foreign body removal Discussed with patient if foreign bodies accessible will remove it however given patient's history it does not seem to be associated with dorsal abscess as on x-ray and MRI it is plantar Patient is in agreement with plan procedure Consent obtained Patient has remained n.p.o. Right lower extremity marked Possible wound VAC placement Will await OR cultures and consult infectious disease for antibiotic management and home recommendations
--- NOTE | 2018-07-29 16:44 | P.PCN ---
Date of procedure: 07/29/18 Pre-op diagnosis: right foot abscess Post-op diagnosis: same Procedure: right foot incision and drainage Anesthesia: ALEISHA Surgeon: Selam Richey Estimated blood loss (mL): 5 Pathology: other (wound culture) Condition: stable Disposition: PACU
[2018-07-29] MEDS: Vancomycin Inj 1,250 MG in Sodium Chlor 0.9% Inj 250 ML IV.SIG SCH (17:18)
[2018-07-29] MEDS ORDERED: HYDROmorphone PF Inj 2 MG/ML Vial IV.PUSH PRN (20:49)
[2018-07-29] MEDS: lamoTRIgine 100 MG Tablet PO SCH (21:57)
[2018-07-30] MEDS: Piperacil/Tazo 4.5 GM Premix 4.5 GM/100 ML BAG IV.SIG SCH ×4 (00:49→19:00)
[2018-07-30] MEDS: Vancomycin Inj 1,250 MG in Sodium Chlor 0.9% Inj 250 ML IV.SIG SCH ×2 (04:08→16:59)
[2018-07-30] MEDS: Sod Chloride 0.9% Inj 1,000 ML IV.CONT SCH ×2 (04:09→15:36)
--- NOTE | 2018-07-30 06:28 | MR ---
cc: Selam Richey DPM DATE: 07/30/2018 SURGEON: Selam Richey DPM. SUPERVISOR ELECTRIC: None. PREOPERATIVE DIAGNOSIS: Right foot abscess. POSTOPERATIVE DIAGNOSIS: Right foot abscess. PROCEDURE: Right foot incision and drainage. ANESTHESIA: General. HEMOSTASIS: None. ESTIMATED BLOOD LOSS: 5 mL. MATERIALS: None. INJECTABLES: 0.5% Marcaine plain, 10 mL total infiltrated about the right foot. COMPLICATIONS: None. INDICATIONS FOR PROCEDURE: The patient is a 33-year-old male who states he had an insect bite to the dorsum of his foot, which he tried to treat at home conservatively with topical. The patient also states he and his partner attempted to drain the abscess at home with a needle. This only made the dorsum of his foot worse; and he presented to the ED with pain, swelling, and erythema extending from the metatarsophalangeal joint to the anterior ankle. The patient does have a past history of IV drug use and there was a foreign body resembling a needle to plantar aspect of lateral foot. The patient states he has not used in the past year and that he has never injected into the foot. Patient understands all risks, alternatives, benefits, and complications associated with proceeding with surgical intervention and would like to proceed with a right foot abscess incision and drainage with foreign body excision. DESCRIPTION OF PROCEDURE: The patient was brought back to the operating room, placed on the operating table in a supine position. General anesthesia was then induced. A well-padded pneumatic ankle tourniquet was placed; however it was not inflated. Right foot was prepped and draped in the usual sterile fashion. Attention was directed to the dorsum of the right foot where a 4 x 4 cm collection of fluid abscess was noted. The dorsum of the skin was noted to be ischemic and necrotic. Therefore, decision was made to circumferentially remove all necrotic tissue. This incision was deepened through skin and subcutaneous tissue with care to retract all vital neurovascular structures and all infected necrotic tissue was removed. The site was copiously irrigated with normal saline. Prior to irrigation, a wound culture was obtained and this was sent to microbiology. Attempt was made to remove the needle to plantar aspect of the foot. An incision was made approximately 1 cm in length. Blunt dissection was performed with hemostat. Fluoroscopy was utilized to try to identify a foreign body; however, it was unsuccessful. Seeing as the foreign body did not communicate with the abscess, attempts were aborted to remove the foreign body, which patient may have indicated has been present for quite some time. The 1 cm incision was copiously irrigated and dressed with 3-0 Prolene. Following copious irrigation of wound site to the dorsal right foot, a wound VAC was applied with Adaptic and black foam. Wound VAC was noted to be functioning at 125 mmHg; and Adaptic, 4 x 4's, cast padding, Boris were applied to the right foot. The patient tolerated the procedure and anesthesia well. He was transferred from the OR to PACU with vital signs stable and neurovascular status intact. OR cultures will be followed and appropriate antibiotic therapy to be managed by Infection Disease. JESSICA Mcnamara , 06:03 AM , 06:12 AM KALANI
[2018-07-30] MEDS: Lisinopril 20 MG Tablet PO SCH (09:53)
[2018-07-30] MEDS: lamoTRIgine 100 MG Tablet PO SCH ×2 (09:53→21:16)
[2018-07-30] MEDS: FLUoxetine 20 MG Capsule PO SCH (09:54)
[2018-07-30] MEDS: OLANZapine 10 MG Tablet PO SCH (09:54)
[2018-07-30] MEDS: clonazePAM 1 MG Tablet PO PRN ×2 (12:31→21:16)
[2018-07-30] MEDS ORDERED: Pharmacy Ordered Lab Info OTHER ONE (16:45)
--- NOTE | 2018-07-30 17:11 | P.PN ---
Subjective Interval history: Nursing denies any deterioration since last night. Patient himself has no new complaints. Physical Exam Vital signs: Vital Signs 07/29/18 17:15 07/29/18 17:30 07/29/18 17:45 Temperature Pulse Rate 66 66 70 Respiratory Rate 18 14 14 Blood Pressure 108/52 L 114/53 L 112/54 L Pulse Oximetry 07/29/18 20:00 07/30/18 00:00 07/30/18 04:00 Temperature 98.5 F 97.4 F L 97.9 F Pulse Rate 76 85 77 Respiratory Rate 17 19 17 Blood Pressure 132/64 140/65 129/60 Pulse Oximetry 99 98 97 07/30/18 08:00 07/30/18 09:00 Temperature 98.1 F Pulse Rate 72 72 Respiratory Rate 20 Blood Pressure 127/69 Pulse Oximetry 94 L Intake & Output 07/29/18 07/30/18 07/30/18 18:59 06:59 18:59 Intake Total 3465 / 3465 1050 / 1050 562.5 / 562.5 Output Total 25 / 25 2300 / 2300 Balance 3440 / 3440 -1250 / -1250 562.5 / 562.5 Weight 102.6 kg Intake: IV 2465 / 2465 250 / 250 562.5 / 562.5 NS Inj 1,000 ML @ 100 mls/hr IV 1999 / 1999 .CONT .Q10H [facility] Rx#:[id number] Zosyn 4.5 GM Premix 4.5 gm In 200 / 200 300 / 300 100 ml @ 200 mls/hr IV.SIG Q6H [facility] Rx#:[id number] Vancomycin Inj 1,250 MG In NS 265 / 265 262.5 / 262.5 Inj 250 ML @ 250 mls/hr IV.SIG Q12H [facility] Rx#:[id number] Oral 800 / 800 Anesthesia Amount 1000 / 1000 Output: Urine 2300 / 2300 Estimated Blood Loss 25 / 25 Other: Mode Setting Right Foot Continuous Continuous Date of Last Bowel Movement 07/29/18 Weight On Admission 102.6 kg Narrative: Has intact sensation of light finger touch over the right foot Has wound VAC in place over postop dressing over the foot Clear lungs bilaterally, unlabored breathing Results - Labs CBC & Chem 7: 07/29/18 02:54 07/29/18 02:54 Laboratory Results - last 24 hr 07/30/18 15:50 Vancomycin Trough 7.1 Microbiology 07/29/18 16:16 Wound - Foot Fungal Smear - Final No fungal elements seen 07/29/18 16:16 Wound - Foot Gram Stain - Final 07/29/18 16:16 Wound - Foot Wound Culture - Preliminary No growth in 24 hours 07/29/18 16:16 Wound - Foot Acid Fast Bacilli Smear - Final No acid fast bacilli seen 07/29/18 05:20 Blood - Peripheral Aerobic Blood Culture - Preliminary No growth in 1 day 07/29/18 05:20 Blood - Peripheral Anaerobic Blood Culture - Preliminary No growth in 1 day 07/29/18 05:15 Blood - Peripheral Aerobic Blood Culture - Preliminary No growth in 1 day 07/29/18 05:15 Blood - Peripheral Anaerobic Blood Culture - Preliminary No growth in 1 day Assessment and Plan - Plan 1. right foot cellulitis/abscess on antibiotics, Podiatry following -Status post debridement with wound VAC placement 2. IDU in remission 3. hepatitis C for outpatient management 4. Bipolar disorder continue Home medicines 5. Tobacco dependence strongly recommended to stop smoking DVT prophylaxis with SCDs until Podiatry management.
--- NOTE | 2018-07-30 19:03 | P.CONID ---
History of Present Illness Service: ID Consult date: 07/30/18 Requesting Physician: Selam Richey Reason for Consult: R foot abscess Primary Care Provider: No Primary Care Physician Chief Complaint: Right foot edema and erythema. History of Present Illness: 33 yo male presented with what he persieves as a spider bite developped on his foot about a week ago Swelling redness and pain keep getting worse and he presented to [place] No prior abx use before addmission MRI showed abscess w/o osteo or septic arthritis Seen by niki Cantu I+D on 07/29Op findings include a 4 x 4 cm collection of fluid abscess and needele that the surgeon was unable to remove Pt reports uimprovement of the pain Nop fever, leukocytosis Pt denies IV drug use in the last 3 yrs Pt is on zosyn, vancomycin, tolerates abx OK Review of Systems All other systems reviewed negative except as stated in HPI PMFSH - History History Provided By: Patient, Family Member - Medical History Medical History: Medical History (Last Reviewed 07/30/18 @ 18:59 by Elena Ferguson MD) Bipolar disorder Chronic back pain Chronic knee pain Hepatitis C Hx of intravenous drug use in remission - Surgical History Surgical History: Surgical History (Last Reviewed 07/30/18 @ 18:59 by Elena Ferguson MD) History of appendectomy - Family History Family History: Family History (Last Reviewed 07/30/18 @ 18:59 by Elena Ferguson MD) Other Family history of hypertension - Tobacco History Second Hand Smoke Exposure: No Tobacco Use In Past 30 Days: No Smoking Status: Current every day smoker Tobacco Type: Cigarettes Packs Per Day: 1 Cigarettes Per Day: 20.0 - Alcohol History How Often Do You Have a Drink Containing Alcohol: Never - Substance Use History Substance History: No History of Abuse - Travel History Recent Travel Out of the Country Within the Last 8 Weeks: No - Immunization History Tetanus Immunization: Unsure Hx Influenza Vaccine This Season: No Medications and Allergies Active Medications: Active Medications Baclofen (Lioresal) 20 mg PO TID [facility] Last Admin: 07/30/18 16:59 Dose: 20 mg Clonazepam (Klonopin) 1 mg PO BID PRN PRN Reason: ANXIETY Last Admin: 07/30/18 12:31 Dose: 1 mg Fluoxetine HCl (Prozac) 40 mg PO DAILY [facility] Last Admin: 07/30/18 09:54 Dose: 40 mg Hydromorphone HCl (Dilaudid) 8 mg PO Q6H PRN PRN Reason: Pain Last Admin: 07/30/18 18:00 Dose: 8 mg Piperacillin/Tazobactam/Dextrose (Zosyn 4.5 Gm Premix) 4.5 gm in 100 mls @ 200 mls/hr IV.SIG Q6H [facility] Last Infusion: 07/30/18 15:36 Dose: Infused Vancomycin HCl 1,500 mg/ (Sodium Chloride) 515 mls @ 250 mls/hr IV.SIG Q12H [facility] Lamotrigine (Lamictal) 100 mg PO BID [facility] Last Admin: 07/30/18 09:53 Dose: 100 mg Lisinopril (Prinivil) 20 mg PO DAILY [facility] Last Admin: 07/30/18 09:53 Dose: 20 mg Miscellaneous Information ([facility] Ordered Lab Info) 0 each OTHER ONCE ONE Stop: 08/01/18 04:46 Olanzapine (Zyprexa) 10 mg PO DAILY [facility] Last Admin: 07/30/18 09:54 Dose: 10 mg Pharmacy Profile Note (Vancomycin Consult Pharmacy) 1 each OTHER UNSCH PRN PRN Reason: Pharmacy to dose Sodium Chloride (Ns Flush) 2 ml IV.FLUSH BID [facility] Last Admin: 07/30/18 09:56 Dose: 2 ml Sodium Chloride (Ns Flush) 2 ml IV.FLUSH PRN PRN PRN Reason: FLUSH AFTER USING IV ACCESS Allergies Allergy/AdvReac Type Severity Reaction Status Date / Time No Known Allergies Allergy Unverified 07/28/18 23:32 Home Medications Medication Instructions Recorded Confirmed Type baclofen 20 mg PO TID 07/29/18 07/29/18 History clonazepam 1 mg PO BID 07/29/18 07/29/18 History fluoxetine 40 mg PO DAILY 07/29/18 07/29/18 History hydromorphone 8 mg PO QID PRN 07/29/18 History lamotrigine 100 mg PO BID 07/29/18 07/29/18 History lisinopril 20 mg PO DAILY 07/29/18 07/29/18 History olanzapine [Zyprexa] 10 mg PO DAILY 07/29/18 07/29/18 History Exam Vital signs: Vital Signs 07/29/18 20:00 07/30/18 00:00 07/30/18 04:00 Temperature 98.5 F 97.4 F L 97.9 F Pulse Rate 76 85 77 Respiratory Rate 17 19 17 Blood Pressure 132/64 140/65 129/60 Pulse Oximetry 99 98 97 07/30/18 08:00 07/30/18 09:00 Temperature 98.1 F Pulse Rate 72 72 Respiratory Rate 20 Blood Pressure 127/69 Pulse Oximetry 94 L Intake & Output 07/29/18 07/30/18 07/30/18 18:59 06:59 18:59 Intake Total 3465 / 3465 1050 / 1050 562.5 / 562.5 Output Total 25 / 25 2300 / 2300 Balance 3440 / 3440 -1250 / -1250 562.5 / 562.5 Weight 102.6 kg Intake: IV 2465 / 2465 250 / 250 562.5 / 562.5 NS Inj 1,000 ML @ 100 mls/hr IV 1999 / 1999 .CONT .Q10H [facility] Rx#:[id number] Zosyn 4.5 GM Premix 4.5 gm In 200 / 200 300 / 300 100 ml @ 200 mls/hr IV.SIG Q6H [facility] Rx#:[id number] Vancomycin Inj 1,250 MG In NS 265 / 265 262.5 / 262.5 Inj 250 ML @ 250 mls/hr IV.SIG Q12H [facility] Rx#:[id number] Oral 800 / 800 Anesthesia Amount 1000 / 1000 Output: Urine 2300 / 2300 Estimated Blood Loss 25 / 25 Other: Mode Setting Right Foot Continuous Continuous Date of Last Bowel Movement 07/29/18 Weight On Admission 102.6 kg - Constitutional no acute distress, average body habitus - Routine HEENT Exam Head: Present: normocephalic, atraumatic Eye: Present: EOMI, PERRL ENT: Present: mucous membranes moist, oropharynx clear - Routine Neck Exam Present: supple, full ROM - Routine Respiratory Exam Present: CTA bilaterally Comments: good effort - Routine Cardiovascular Exam Present: RRR, S1, S2 Comments: no murmurs, rubs, gallops - Routine Abdominal Exam Present: soft Comments: not tender, not distednde no hepatosplenomegaly no mass - Routine Extremities Exam Comments: no cyanosis no clud=bbing or edema R foot bulky dressing and VAC in place with serosang d/c - Routine Neurological Exam Present: alert, oriented X3, moving all extremities, vision grossly intact, hearing grossly intact, normal speech - Routine Psychiatric Exam Present: normal affect, normal thought process, cooperative Results - Labs CBC & Chem 7: 08/02/18 04:14 08/02/18 04:14 Labs: Laboratory Results - last 24 hr 07/30/18 15:50 Vancomycin Trough 7.1 - Imaging Foot X-Ray 07/29/18 04:50 CONCLUSION: Soft tissue swelling of the right foot, nonspecific but an age-indeterminate needlelike foreign body is seen in the soft tissues plantar to the fifth metatarsal base. No fracture or subluxation. Foot MRI 07/29/18 05:55 There is diffuse edema identified of the lower leg and dorsum of the foot with a focal fluid collection dorsal lateral aspect of the foot measuring 3.3 x 1.3 cm in size. There is surrounding diffuse skin thickening. This is felt to represent an abscess with associated cellulitis. There is susceptibility artifact at the plantar aspect of the foot deep to the fifth metatarsal which may be related to the metallic foreign body noted on the recent x-ray. There is no underlying bone marrow signal abnormality. CONCLUSION: 1. Cellulitis and abscess formation seen. Assessment and Plan - Plan Right foot abscess, clx NGTD sp right foot incision and drainage - retained foreign object (needle) cont broad spectrum abx fu clx untill final anticipate transition to PO abx on discharge case dw Dr Richey
[2018-07-31] MEDS: Piperacil/Tazo 4.5 GM Premix 4.5 GM/100 ML BAG IV.SIG SCH ×5 (01:09→19:49)
[2018-07-31] MEDS: Vancomycin Inj 1,500 MG in Sodium Chlor 0.9% Inj 500 ML IV.SIG SCH ×2 (04:46→16:43)
[2018-07-31 06:15] LABS: Glomerular Filtration Rate Greater Than 89 mL/min (>89)
[2018-07-31] MEDS: lamoTRIgine 100 MG Tablet PO SCH ×2 (08:47→20:00)
[2018-07-31] MEDS: OLANZapine 10 MG Tablet PO SCH (08:47)
[2018-07-31] MEDS: FLUoxetine 20 MG Capsule PO SCH (08:48)
[2018-07-31] MEDS: Lisinopril 20 MG Tablet PO SCH (08:49)
[2018-07-31] MEDS: clonazePAM 1 MG Tablet PO PRN ×2 (08:52→22:37)
--- NOTE | 2018-07-31 15:03 | P.PNPOD ---
Subjective Interval history: Right foot s/p I&D with . Pt is tolerating the VAC well but reports a decreased ROM to digits. Physical Exam Vital signs: Vital Signs 07/30/18 16:00 07/30/18 20:00 07/31/18 00:00 Temperature 98.1 F 97.5 F L 97.4 F L Pulse Rate 76 80 74 Respiratory Rate 20 18 18 Blood Pressure 119/69 124/56 L 125/58 L Pulse Oximetry 97 96 94 L 07/31/18 04:00 07/31/18 04:04 07/31/18 08:00 Temperature 97.4 F L 98.9 F Pulse Rate 84 68 66 Respiratory Rate 18 16 Blood Pressure 124/68 137/84 Pulse Oximetry 98 96 07/31/18 12:00 Temperature 97.9 F Pulse Rate 75 Respiratory Rate 16 Blood Pressure 131/67 Pulse Oximetry 96 Intake & Output 07/30/18 07/31/18 07/31/18 18:59 06:59 18:59 Intake Total 1282.5 / 1282.5 472.5 / 472.5 1605 / 1605 Output Total 1450 / 1450 Balance -167.5 / -167.5 472.5 / 472.5 1605 / 1605 Intake: IV 562.5 / 562.5 472.5 / 472.5 1605 / 1605 NS Inj 1,000 ML @ 100 mls/hr IV .CONT .Q10H [facility] Rx#:[id number] Zosyn 4.5 GM Premix 4.5 gm In 300 / 300 200 / 200 100 / 100 100 ml @ 200 mls/hr IV.SIG Q6H [facility] Rx#:[id number] Vancomycin Inj 1,250 MG In NS 262.5 / 262.5 262.5 / 262.5 Inj 250 ML @ 250 mls/hr IV.SIG Q12H [facility] Rx#:[id number] Vancomycin Inj 1,500 MG In NS 515 / 515 Inj 500 ML @ 250 mls/hr IV.SIG Q12H [facility] Rx#:[id number] Oral 720 / 720 Output: Urine 1450 / 1450 Other: Mode Setting Right Foot Continuous Continuous # Voids 2 # Bowel Movements 0 Narrative: Right dorsal foot wound full thickness with exposed tendon. Surrounding erythema and edema. 5cmx 4cm x 0.5cm. Medications and Allergies Active Medications: Active Medications Baclofen (Lioresal) 20 mg PO TID [facility] Last Admin: 07/31/18 14:44 Dose: 20 mg Clonazepam (Klonopin) 1 mg PO BID PRN PRN Reason: ANXIETY Last Admin: 07/31/18 08:52 Dose: 1 mg Fluoxetine HCl (Prozac) 40 mg PO DAILY [facility] Last Admin: 07/31/18 08:48 Dose: 40 mg Hydromorphone HCl (Dilaudid) 8 mg PO Q6H PRN PRN Reason: Pain Last Admin: 07/31/18 13:30 Dose: 8 mg Vancomycin HCl 1,500 mg/ (Sodium Chloride) 515 mls @ 250 mls/hr IV.SIG Q12H [facility] Last Infusion: 07/31/18 07:43 Dose: Infused Piperacillin/Tazobactam/Dextrose (Zosyn 4.5 Gm Premix) 4.5 gm in 100 mls @ 200 mls/hr IV.SIG Q6H [facility] Last Infusion: 07/31/18 09:34 Dose: Infused Lamotrigine (Lamictal) 100 mg PO BID [facility] Last Admin: 07/31/18 08:47 Dose: 100 mg Lisinopril (Prinivil) 20 mg PO DAILY [facility] Last Admin: 07/31/18 08:49 Dose: 20 mg Miscellaneous Information ([facility] Ordered Lab Info) 0 each OTHER ONCE ONE Stop: 08/01/18 04:46 Olanzapine (Zyprexa) 10 mg PO DAILY [facility] Last Admin: 07/31/18 08:47 Dose: 10 mg Pharmacy Profile Note (Vancomycin Consult Pharmacy) 1 each OTHER UNSCH PRN PRN Reason: Pharmacy to dose Sodium Chloride (Ns Flush) 2 ml IV.FLUSH BID [facility] Last Admin: 07/31/18 08:50 Dose: 2 ml Sodium Chloride (Ns Flush) 2 ml IV.FLUSH PRN PRN PRN Reason: FLUSH AFTER USING IV ACCESS Last Admin: 07/30/18 21:16 Dose: 2 ml Allergies Allergy/AdvReac Type Severity Reaction Status Date / Time No Known Allergies Allergy Unverified 07/28/18 23:32 Home Medications Medication Instructions Recorded Confirmed Type baclofen 20 mg PO TID 07/29/18 07/29/18 History clonazepam 1 mg PO BID 07/29/18 07/29/18 History fluoxetine 40 mg PO DAILY 07/29/18 07/29/18 History hydromorphone 8 mg PO QID PRN 07/29/18 History lamotrigine 100 mg PO BID 07/29/18 07/29/18 History lisinopril 20 mg PO DAILY 07/29/18 07/29/18 History olanzapine [Zyprexa] 10 mg PO DAILY 07/29/18 07/29/18 History Results - Labs CBC & Chem 7: 07/29/18 02:54 07/31/18 05:10 Laboratory Results - last 24 hr 07/30/18 07/31/18 15:50 05:10 Creatinine 0.88 Estimated GFR Greater than 89 Vancomycin Trough 7.1 Microbiology 07/29/18 16:16 Wound - Foot Gram Stain - Final 07/29/18 16:16 Wound - Foot Wound Culture - Final 07/29/18 05:20 Blood - Peripheral Aerobic Blood Culture - Preliminary No growth in 2 days 07/29/18 05:20 Blood - Peripheral Anaerobic Blood Culture - Preliminary No growth in 2 days 07/29/18 05:15 Blood - Peripheral Aerobic Blood Culture - Preliminary No growth in 2 days 07/29/18 05:15 Blood - Peripheral Anaerobic Blood Culture - Preliminary No growth in 2 days 07/29/18 16:16 Wound - Foot Fungal Smear - Final No fungal elements seen 07/29/18 16:16 Wound - Foot Acid Fast Bacilli Smear - Final No acid fast bacilli seen Assessment and Plan - Assessment (1) Cellulitis Code(s): L03.90 - Cellulitis, unspecified Status: Acute - Plan -cont wound VAC, change orders placed for nursing, home VAC form on chart, CM is aware of d/c needs -cellulitis remains present and will need to improve before d/c -will continue to monitor closely in house (1) Cellulitis Qualifiers: Site of cellulitis: extremity Site of cellulitis of extremity: lower extremity Laterality: right Qualified Code(s): L03.115 - Cellulitis of right lower limb
--- NOTE | 2018-07-31 15:53 | P.PN ---
Subjective Interval history: Nursing denies any deterioration since last night. Patient himself vocalizes no new complaints. Wound VAC in place over the right foot. Has intact sensation over the foot to light finger touch. Physical Exam Vital signs: Vital Signs 07/30/18 16:00 07/30/18 20:00 07/31/18 00:00 Temperature 98.1 F 97.5 F L 97.4 F L Pulse Rate 76 80 74 Respiratory Rate 20 18 18 Blood Pressure 119/69 124/56 L 125/58 L Pulse Oximetry 97 96 94 L 07/31/18 04:00 07/31/18 04:04 07/31/18 08:00 Temperature 97.4 F L 98.9 F Pulse Rate 84 68 66 Respiratory Rate 18 16 Blood Pressure 124/68 137/84 Pulse Oximetry 98 96 07/31/18 12:00 Temperature 97.9 F Pulse Rate 75 Respiratory Rate 16 Blood Pressure 131/67 Pulse Oximetry 96 Intake & Output 07/30/18 07/31/18 07/31/18 18:59 06:59 18:59 Intake Total 1282.5 / 1282.5 472.5 / 472.5 1605 / 1605 Output Total 1450 / 1450 Balance -167.5 / -167.5 472.5 / 472.5 1605 / 1605 Intake: IV 562.5 / 562.5 472.5 / 472.5 1605 / 1605 NS Inj 1,000 ML @ 100 mls/hr IV 10 / .CONT .Q10H [facility] Rx#:[id number] Zosyn 4.5 GM Premix 4.5 gm In 300 / 300 200 / 200 100 / 100 100 ml @ 200 mls/hr IV.SIG Q6H [facility] Rx#:[id number] Vancomycin Inj 1,250 MG In NS 262.5 / 262.5 262.5 / 262.5 Inj 250 ML @ 250 mls/hr IV.SIG Q12H [facility] Rx#:[id number] Vancomycin Inj 1,500 MG In NS 515 / 515 Inj 500 ML @ 250 mls/hr IV.SIG Q12H [facility] Rx#:[id number] Oral 720 / 720 Output: Urine 1450 / 1450 Other: Mode Setting Right Foot Continuous Continuous # Voids 2 # Bowel Movements 0 Results - Labs CBC & Chem 7: 07/29/18 02:54 07/31/18 05:10 Laboratory Results - last 24 hr 07/30/18 07/31/18 15:50 05:10 Creatinine 0.88 Estimated GFR Greater than 89 Vancomycin Trough 7.1 Microbiology 07/29/18 16:16 Wound - Foot Gram Stain - Final 07/29/18 16:16 Wound - Foot Wound Culture - Final 07/29/18 05:20 Blood - Peripheral Aerobic Blood Culture - Preliminary No growth in 2 days 07/29/18 05:20 Blood - Peripheral Anaerobic Blood Culture - Preliminary No growth in 2 days 07/29/18 05:15 Blood - Peripheral Aerobic Blood Culture - Preliminary No growth in 2 days 07/29/18 05:15 Blood - Peripheral Anaerobic Blood Culture - Preliminary No growth in 2 days 07/29/18 16:16 Wound - Foot Fungal Smear - Final No fungal elements seen 07/29/18 16:16 Wound - Foot Acid Fast Bacilli Smear - Final No acid fast bacilli seen Assessment and Plan - Plan 1. right foot cellulitis/abscess on antibiotics, Podiatry following -Status post debridement with wound VAC placement Continue antibiotics, ID following 2. IDU in remission 3. hepatitis C for outpatient management 4. Bipolar disorder continue Home medicines 5. Tobacco dependence strongly recommended to stop smoking DVT prophylaxis with SCDs until Podiatry management.
[2018-08-01] MEDS: Piperacil/Tazo 4.5 GM Premix 4.5 GM/100 ML BAG IV.SIG SCH ×4 (02:17→21:01)
[2018-08-01] MEDS ORDERED: Pharmacy Ordered Lab Info OTHER ONE (04:45)
[2018-08-01] MEDS: Vancomycin Inj 1,500 MG in Sodium Chlor 0.9% Inj 500 ML IV.SIG SCH (05:05)
[2018-08-01 06:04] LABS: Glomerular Filtration Rate Greater Than 89 mL/min (>89)
[2018-08-01 06:06] LABS: Vancomycin,Trough 9.9 mcg/mL (5.0-10.0)
[2018-08-01] MEDS: lamoTRIgine 100 MG Tablet PO SCH ×2 (09:36→21:02)
[2018-08-01] MEDS: Lisinopril 20 MG Tablet PO SCH (09:36)
[2018-08-01] MEDS: FLUoxetine 20 MG Capsule PO SCH (09:43)
[2018-08-01] MEDS: OLANZapine 10 MG Tablet PO SCH (09:43)
--- NOTE | 2018-08-01 14:02 | P.PNWCN ---
Wound Care Nurse Consult Description: Wound consult ordered by for wound vac management. Communicated with: Penelope HEIN, Recommendation: 1. Please maintain functional seal to right dorsal foot wound vac.To be changed by Doctor or Wound Care Nurse.If seal is not maintain for max 2 hours remove sponge , Apply moist to dry dressing. Upon Discharge 1. Cleanse right dorsal foot wound with normal saline ,pat dry skin prep periwound. 2. Apply Puracol AG cut to fit wound base leave in place x7 days, cover with dry gauze secure with boarder gauze. 3. Sign and date all dressings, Secondary dressing can be changed as needed for exudate management/dislodgement. 4. Follow up with out patient wound center or sliver chopper upon discharge. Additional information: Patient was seen today by functional tester typewriters and Penelope HEIN for wound vac management.Patient alert and oriented sitting up in bed in no acute distress.Dressing removed from right dorsal foot with out difficulty.Wound cleansed with normal saline pat dry .full thickness wound measures 3.3cm x 3.0cm x 0.2cm wound base 85% moist beefy red granular tissue with 15% moist partially exposed tendon.Wound edges are well defined and bebe.no erythema nor induration noted.minimal serosanguineous exudate noted to prior dressing with out odor.Skin prep applied to periwound double layer of adaptic applied to wound base covered with 1 piece of black GranuFoam and trach pad applied to home wound vac suction maintained @ 125mmHg .Patient tolerated wound care well.Patient states he is regaining range of motion in right digits.2 sutures to lateral foot dry intact no erythema noted.report given to Penelope HEIN. Wound/Pressure Injury - Wound Right Foot Wound Type: Abscess Is This a Chronic Wound: No Requested from Provider a Wound Care Consult: No (Blas HEIN,[facility] seen 08/01) Length: 3.3 Width: 3.0 Depth: 0.2 Wound Bed Appearance: [place], Red Wound Bed Appearance: 85% moist granular tissue 15% moist partially exposed tendon Surrounding Tissue Temperature: Cool Drainage Description: Serosanguinous Drainage Amount: Minimal Drainage Odor: No Odor Dressing Status: Changed Cleansing Solution: Saline Wound Packing Type: Woundvac Sponge Primary Dressing: Negative Pressure Wound Dressing Wound Dressing Change Date: 08/01/18 Wound Vac - Wound Vac Right Foot Pressure Setting (mmHg): 125 Mode Setting: Continuous Drainage Description: Serosanguinous Foam type: Black, Other (double layer of adaptic) Incision - Incision Right Foot Incision Type: Incision Primary Dressing: Gauze Roll/Wrap Cover Dressing: Elastic Bandage
[2018-08-01] MEDS: Vancomycin Inj 1,750 MG in Sodium Chlor 0.9% Inj 500 ML IV.SIG SCH (16:35)
--- NOTE | 2018-08-01 17:06 | P.PN ---
Subjective Interval history: Nursing denies any deterioration since last night. Patient himself has no new complaints, only vocalizes that he would like for his Geodon to be rescheduled at nighttime since that is what he does at home. Physical Exam Vital signs: Vital Signs 07/31/18 19:46 07/31/18 20:00 08/01/18 00:00 Temperature 97.5 F L 97.1 F L 97.1 F L Pulse Rate 62 69 69 Respiratory Rate 18 18 18 Blood Pressure 135/78 119/64 119/64 Pulse Oximetry 98 96 96 08/01/18 04:00 08/01/18 08:00 08/01/18 12:00 Temperature 97.8 F 97.9 F 97.8 F Pulse Rate 60 58 L 69 Respiratory Rate 18 18 Blood Pressure 131/72 145/77 H 133/73 Pulse Oximetry 95 96 97 Intake & Output 07/31/18 08/01/18 08/01/18 18:59 06:59 18:59 Intake Total 2305 / 2305 715 / 715 715 / 715 Balance 2305 / 2305 715 / 715 715 / 715 Intake: IV 1705 / 1705 715 / 715 715 / 715 Zosyn 4.5 GM Premix 4.5 gm In 200 / 200 200 / 200 200 / 200 100 ml @ 200 mls/hr IV.SIG Q6H [facility] Rx#:[id number] Vancomycin Inj 1,500 MG In NS 515 / 515 515 / 515 515 / 515 Inj 500 ML @ 250 mls/hr IV.SIG Q12H [facility] Rx#:[id number] Oral 600 / 600 Other: Mode Setting Right Foot Continuous Continuous # Voids 3 # Bowel Movements 1 Narrative: Does have some range of motion of his ankle and toes, otherwise is limited with wound VAC in place over the right foot which appears to be healing well, mild erythema Lying in bed, awake and alert, no acute distress Results - Labs CBC & Chem 7: 07/29/18 02:54 08/01/18 05:00 Laboratory Results - last 24 hr 08/01/18 05:00 Creatinine 0.86 Estimated GFR Greater than 89 Vancomycin Trough 9.9 Microbiology 07/29/18 05:20 Blood - Peripheral Aerobic Blood Culture - Preliminary No growth in 3 days 07/29/18 05:20 Blood - Peripheral Anaerobic Blood Culture - Preliminary No growth in 3 days 07/29/18 05:15 Blood - Peripheral Aerobic Blood Culture - Preliminary No growth in 3 days 07/29/18 05:15 Blood - Peripheral Anaerobic Blood Culture - Preliminary No growth in 3 days Assessment and Plan - Plan 1. right foot cellulitis/abscess on antibiotics, Podiatry following -Status post debridement with wound VAC placement Continue antibiotics, ID following 2. IDU in remission 3. hepatitis C for outpatient management 4. Bipolar disorder continue Home medicines 5. Tobacco dependence strongly recommended to stop smoking DVT prophylaxis with SCDs until Podiatry management. Discharge Planning: Wound VAC for home in place. awaiting for CM to finish making arrangements for home wound vac agency. likely to be dc'd on po augmentin per ID tomorrow
[2018-08-01] MEDS ORDERED: OLANZapine 10 MG Tablet PO SCH (21:00)
[2018-08-01] MEDS: clonazePAM 1 MG Tablet PO PRN (21:03)
[2018-08-02] MEDS: Piperacil/Tazo 4.5 GM Premix 4.5 GM/100 ML BAG IV.SIG SCH ×3 (01:00→16:36)
[2018-08-02 01:22] VITALS: RESP 18
[2018-08-02] MEDS: Vancomycin Inj 1,750 MG in Sodium Chlor 0.9% Inj 500 ML IV.SIG SCH (04:00)
[2018-08-02 05:35] LABS: Baso % (Auto) 0.5 % (0.0-2.0); Eos # (Auto) 0.2 th/mm3 (0.0-0.4); Eos % (Auto) 2.2 % (0.0-4.0); Hemoglobin 12.2 gm/dL (13.0-17.0); Lymph # (Auto) 1.8 th/mm3 (1.0-4.8); Lymph % (Auto) 26.1 % (9.0-44.0); Mean Corpuscular Hemoglobin 28.7 pg (27.0-34.0); Mean Corpuscular Volume 84.6 fL (80.0-100.0); Mean Platelet Volume 6.7 fL (7.0-11.0); Mono # (Auto) 0.3 th/mm3 (0.0-0.9); Mono % (Auto) 4.7 % (0.0-8.0); Neut # (Auto) 4.6 th/mm3 (1.8-7.7); Neut % (Auto) 66.5 % (16.0-70.0); Platelet Count 353 th/mm3 (150-450); Red Blood Count 4.26 mil/mm3 (4.50-5.90); Red Cell Distribution Width 13.9 % (11.6-17.2); White Blood Count 6.9 th/mm3 (4.0-11.0)
[2018-08-02 06:01] LABS: Alkaline Phosphatase 89 U/L (45-117); Total Protein 7.5 g/dL (6.4-8.2)
[2018-08-02 06:06] LABS: Alanine Aminotransferase 51 U/L (12-78); Anion Gap 10 meq/L (5-15); Aspartate Aminotransferase 30 U/L (15-37); Blood Urea Nitrogen 9 mg/dL (7-18); Calcium 9.3 mg/dL (8.5-10.1); Carbon Dioxide 28.1 meq/L (21.0-32.0); Chloride 109 meq/L (98-107); Glomerular Filtration Rate Greater Than 89 mL/min (>89); Glucose,Random 98 mg/dL (74-106); Sodium 147 meq/L (136-145)
--- NOTE | 2018-08-02 07:19 | P.PNIM ---
Subjective Interval history: Patient was seen and examined this morning. He is doing well and has no complaints. No shortness of breath no chest pain, nausea/vomiting/abdominal pain. He is eating well and finished his breakfast. His pain is well controlled on medication. He had a lot of questions about his surgery and the wound VAC. Physical Exam Vital signs: Vital Signs 08/01/18 08:00 08/01/18 12:00 08/01/18 16:00 Temperature 97.9 F 97.8 F 97.9 F Pulse Rate 58 L 69 73 Respiratory Rate 18 Blood Pressure 145/77 H 133/73 126/64 Pulse Oximetry 96 97 97 08/01/18 20:00 08/02/18 00:00 08/02/18 04:00 Temperature 97.8 F 98 F 98 F Pulse Rate 55 L 71 54 L Respiratory Rate Blood Pressure 146/70 H 146/71 H 157/78 H Pulse Oximetry 98 95 98 Intake & Output 08/01/18 08/02/18 08/02/18 18:59 06:59 18:59 Intake Total 2.5 / 1952.5 837.5 / 837.5 Balance 1952.5 / 1952.5 837.5 / 837.5 Weight 110.7 kg Intake: IV 1232.5 / 1232.5 717.5 / 717.5 Zosyn 4.5 GM Premix 4.5 gm In 200 / 200 200 / 200 100 ml @ 200 mls/hr IV.SIG Q6H MARGA Rx#:[id number] Vancomycin Inj 1,750 MG In NS 1032.5 / 1032.5 517.5 / 517.5 Inj 500 ML @ 250 mls/hr IV.SIG Q12H MARGA Rx#:[id number] Oral 720 / 720 120 / 120 Other: Mode Setting Right Foot Continuous Continuous # Voids 5 3 Narrative: GENERAL: Patient lying in bed. Appears comfortable. Alert and oriented 4. SKIN: Warm and dry. HEAD: Atraumatic. Normocephalic. EYES: Pupils equal and round. No scleral icterus. No injection or drainage. ENT: No nasal bleeding or discharge. Mucous membranes pink and moist. NECK: Trachea midline. No JVD. CARDIOVASCULAR: Regular rate and rhythm. RESPIRATORY: No accessory muscle use. Clear to auscultation. Breath sounds equal bilaterally. GASTROINTESTINAL: Abdomen soft, non-tender, nondistended. Hepatic and splenic margins not palpable. MUSCULOSKELETAL: Extremities without clubbing, cyanosis, or edema. No obvious deformities. NEUROLOGICAL: Awake and alert. No obvious cranial nerve deficits. Motor grossly within normal limits. Five out of 5 muscle strength in the arms and legs. Normal speech. Bilateral lower legs are dressed. Left leg with wound VAC in place able to wiggle toes bilaterally. Visible toes appear pink and well perfused. PSYCHIATRIC: Appropriate mood and affect; insight and judgment normal. Results - Labs CBC & Chem 7: 08/02/18 04:14 08/02/18 04:14 Laboratory Results - last 24 hr 08/02/18 08/02/18 04:14 04:14 WBC 6.9 RBC 4.26 L Hgb 12.2 L Hct 36.0 L MCV 84.6 MCH 28.7 MCHC 34.0 RDW 13.9 Plt Count 353 MPV 6.7 L Neut % (Auto) 66.5 Lymph % (Auto) 26.1 Chambers % (Auto) 4.7 Eos % (Auto) 2.2 Baso % (Auto) 0.5 Neut # (Auto) 4.6 Lymph # (Auto) 1.8 Chambers # (Auto) 0.3 Eos # (Auto) 0.2 Baso # (Auto) 0.0 WBC Differential . Differential Comment Auto diff final Sodium 147 H Potassium 4.0 Chloride 109 H Carbon Dioxide 28.1 Anion Gap 10 BUN 9 Creatinine 0.95 Estimated GFR Greater than 89 Random Glucose 98 Calcium 9.3 Total Bilirubin 0.2 AST 30 ALT 51 Alkaline Phosphatase 89 Total Protein 7.5 Albumin 3.0 L Microbiology 07/29/18 05:20 Blood - Peripheral Aerobic Blood Culture - Preliminary No growth in 3 days 07/29/18 05:20 Blood - Peripheral Anaerobic Blood Culture - Preliminary No growth in 3 days 07/29/18 05:15 Blood - Peripheral Aerobic Blood Culture - Preliminary No growth in 3 days 07/29/18 05:15 Blood - Peripheral Anaerobic Blood Culture - Preliminary No growth in 3 days Assessment and Plan - Assessment (1) Cellulitis Code(s): L03.90 - Cellulitis, unspecified Status: Acute (2) Abscess Code(s): L02.91 - Cutaneous abscess, unspecified Status: Acute - Plan 1. Right foot cellulitis/abscess on antibiotics, Podiatry following -Status post debridement with wound VAC placement -Cleared for discharge home today per ID with PO Augmentin 2. IVDU in remission 3. Hepatitis C for outpatient management 4. Bipolar disorder - continue home medicines 5. Tobacco dependence - strongly recommended to stop smoking DVT prophylaxis with SCDs Discussed Condition With: Patient and nurse Discharge Planning: DC home today with Augmentin PO Patient is self-pay and will need a wound VAC at home with home health wound care/nursing - arrangements per CM (1) Cellulitis Qualifiers: Site of cellulitis: extremity Site of cellulitis of extremity: lower extremity Laterality: right Qualified Code(s): L03.115 - Cellulitis of right lower limb
[2018-08-02] MEDS: Lisinopril 20 MG Tablet PO SCH (09:04)
[2018-08-02] MEDS: FLUoxetine 20 MG Capsule PO SCH (09:05)
[2018-08-02] MEDS: lamoTRIgine 100 MG Tablet PO SCH (09:05)
[2018-08-02 12:35] VITALS: BP 152/85; PULSE 67; TEMP 97.7; O2SAT 99
--- NOTE | 2018-08-02 20:24 | P.DS ---
Date of admission: 07/29/18 06:44 Primary care physician: No Primary Care Physician Attending physician on discharge: Niki Riddle Eko Anticipated date of discharge: 08/02/18 Brief History from admission: This is a pleasant 33 y/o Male who came to ER with right foot pain that began 4- 5 days ago. He reports that initially on the dorsum of his foot he noticed an area of redness that appeared to be an insect bite. using topical medicines at home, continues to have an oozing of the brown fluid. worsening erythema and edema, On chronic Dilaudid for back pain. has Bipolar disorder, Hepatitis C, history of IVDU in remission, Tobacco dependence. received Zosyn and Vancomycin, DS: Diagnosis - Discharge Diagnosis (1) Cellulitis Status: Acute (2) Abscess Status: Acute DS: Medications - Discharge Medications Prescriptions: amoxicillin-pot clavulanate [Augmentin] 1 tab PO Q12H #16 tab ibuprofen 800 mg PO Q8H PRN #30 tab PRN Reason: Breakthrough Pain DS: Summary Hospital Course: 33-year-old male was admitted for right foot abscess/cellulitis after failing outpatient topical therapy at home. Podiatry was consulted and performed incision and drainage with wound VAC placement on 07/30/2018. Infectious disease was consulted and he was managed with broad-spectrum IV antibiotics. He improved significantly during his hospital stay and was discharged home on oral Augmentin. He will receive [facility] wound care visits at home. - Time Spent with Patient Total time spent providing and/or coordinating discharge services: Less than 30 minutes - Quality: VTE Deep Vein Thrombosis/Pulmonary Embolism Present on Admission: No Exam Vital signs: Vital Signs 08/02/18 00:00 08/02/18 04:00 08/02/18 08:00 Temperature 98 F 98 F 97.6 F Pulse Rate 71 54 L 51 L Respiratory Rate 18 18 18 Blood Pressure 146/71 H 157/78 H 148/89 H Pulse Oximetry 95 98 97 08/02/18 12:00 Temperature 97.7 F Pulse Rate 67 Respiratory Rate 18 Blood Pressure 152/85 H Pulse Oximetry 99 Intake & Output 08/02/18 08/02/18 08/03/18 06:59 18:59 06:59 Intake Total 837.5 / 837.5 480 / 480 Output Total 1000 / 1000 Balance 837.5 / 837.5 -520 / -520 Weight 110.7 kg Intake: IV 717.5 / 717.5 100 / 100 Zosyn 4.5 GM Premix 4.5 gm In 200 / 200 100 / 100 100 ml @ 200 mls/hr IV.SIG Q6H MARGA Rx#:[id number] Vancomycin Inj 1,750 MG In NS 517.5 / 517.5 Inj 500 ML @ 250 mls/hr IV.SIG Q12H MARGA Rx#:[id number] Oral 120 / 120 380 / 380 Output: Urine 1000 / 1000 Other: Mode Setting Right Foot Continuous Continuous # Voids 3 Date of Last Bowel Movement 08/01/18 # Bowel Movements 1 Narrative: GENERAL: Patient lying in bed. Appears comfortable. Alert and oriented 4. SKIN: Warm and dry. HEAD: Atraumatic. Normocephalic. EYES: Pupils equal and round. No scleral icterus. No injection or drainage. ENT: No nasal bleeding or discharge. Mucous membranes pink and moist. NECK: Trachea midline. No JVD. CARDIOVASCULAR: Regular rate and rhythm. RESPIRATORY: No accessory muscle use. Clear to auscultation. Breath sounds equal bilaterally. GASTROINTESTINAL: Abdomen soft, non-tender, nondistended. Hepatic and splenic margins not palpable. MUSCULOSKELETAL: Extremities without clubbing, cyanosis, or edema. No obvious deformities. NEUROLOGICAL: Awake and alert. No obvious cranial nerve deficits. Motor grossly within normal limits. Five out of 5 muscle strength in the arms and legs. Normal speech. Bilateral lower legs are dressed. Left leg with wound VAC in place able to wiggle toes bilaterally. Visible toes appear pink and well perfused. PSYCHIATRIC: Appropriate mood and affect; insight and judgment normal. Results Procedures completed during hospitalization: Right foot cellulitis/abscess debridement with wound VAC placement Pending studies at discharge: Pending at discharge 07/29/18 Surgical [PTH] Routine Labs on day of discharge: Labs from last 24 hours 08/02/18 08/02/18 04:14 04:14 WBC 6.9 RBC 4.26 L Hgb 12.2 L Hct 36.0 L MCV 84.6 MCH 28.7 MCHC 34.0 RDW 13.9 Plt Count 353 MPV 6.7 L Neut % (Auto) 66.5 Lymph % (Auto) 26.1 Garden % (Auto) 4.7 Eos % (Auto) 2.2 Baso % (Auto) 0.5 Neut # (Auto) 4.6 Lymph # (Auto) 1.8 Garden # (Auto) 0.3 Eos # (Auto) 0.2 Baso # (Auto) 0.0 WBC Differential . Differential Comment Auto diff final Sodium 147 H Potassium 4.0 Chloride 109 H Carbon Dioxide 28.1 Anion Gap 10 BUN 9 Creatinine 0.95 Estimated GFR Greater than 89 Random Glucose 98 Calcium 9.3 Total Bilirubin 0.2 AST 30 ALT 51 Alkaline Phosphatase 89 Total Protein 7.5 Albumin 3.0 L Preliminary micro results at discharge 07/29/18 05:20 Aerobic Blood Culture - Preliminary Blood - Peripheral No growth in 4 days Anaerobic Blood Culture - Preliminary No growth in 4 days 07/29/18 05:15 Aerobic Blood Culture - Preliminary Blood - Peripheral No growth in 4 days Anaerobic Blood Culture - Preliminary No growth in 4 days - Impressions ITS Impressions Foot X-Ray 07/29/18 04:50 CONCLUSION: Soft tissue swelling of the right foot, nonspecific but an age-indeterminate needlelike foreign body is seen in the soft tissues plantar to the fifth metatarsal base. No fracture or subluxation. Foot MRI 07/29/18 05:55 There is diffuse edema identified of the lower leg and dorsum of the foot with a focal fluid collection dorsal lateral aspect of the foot measuring 3.3 x 1.3 cm in size. There is surrounding diffuse skin thickening. This is felt to represent an abscess with associated cellulitis. There is susceptibility artifact at the plantar aspect of the foot deep to the fifth metatarsal which may be related to the metallic foreign body noted on the recent x-ray. There is no underlying bone marrow signal abnormality. CONCLUSION: 1. Cellulitis and abscess formation seen. Discharge Plan - Discharge Disposition Patient Disposition: /Home Health Service - Discharge Condition Condition: Stable - Discharge Order Discharge Orders: Discharge Order (Routine); Ordered 08/02/18 Ordered By: Niki Pollock - Discharge Details Anticipated Discharge Date: 08/02/18 - Physicians Team Primary Care Provider: Primary Care Dominique Orozco Attending Provider: Niki Pollock Other Providers: Selam Richey DPM ; Elnea Ferguson MD ; Fady Hartley MD
--- NOTE | 2018-08-05 10:03 | P.DCO ---
- Physical Therapy Order: Evaluate and treat, Improve ambulation, Strength and gait training - Home Health Nursing Order: Medical education, Signs/symptoms of disease process, Medication education-adverse effect, Wound care and dressing changes, Nursing assessment with vital signs - Certification I have seen patient Nam Fernandez on 08/05/18. My clinical findings support the need for the requested home health care services because: Limited mobility due to disease progression, Limited ability to care for self, Need for psychosocial assistance, High risk of falls I certify that my clinical findings support that this patient is homebound because: Unsteady gait/balance, Unsafe to leave home unassisted, Need for psychosocial assistance
== END 2018-08-02 15:30 | disposition home health service (06) ==
LOC: NEPC 23:12 → NEDA 07-29 06:44 → N04 07-29 13:15
PROVIDERS: ADMIT Family Medicine; ATTEND Family Medicine